=== PATIENT | female | born 1960 | race Caucasian/White ===

== ENCOUNTER 2016-06-04 22:51 | Emergency (ER) | payer OTHER ==
[2016-06-04 23:00] VITALS: O2SAT 98
[2016-06-04] MEDS ORDERED: 0.9% Sodium Chloride 1,000 ML IV ONE (23:08)
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
[2016-06-04 23:16] LABS: BASOPHILS % (AUTO) 0.6 % (0-3); EOSINOPHILS % (AUTO) 1.5 % (0-5); MONOCYTES % (AUTO) 7.3 % (4-12); Mean Corpuscular Hemoglobin 28.7 pg (27.0-35.0); Mean Corpuscular Volume 82.5 fL (81-100); NEUTROPHILS % (AUTO) 36.8 % (40-74); Platelet Count 221 bil/L (150-400)
[2016-06-04] MEDS ORDERED: fentaNYL-PF 50 mCg/mL 2 mL Inj ONE (23:18)
[2016-06-04] MEDS ORDERED: Propofol 10,000 mCg/mL 100 mL Inj ONE (23:18)
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
== END 2016-06-04 23:50 | disposition short-term general hospital (02) ==
LOC: EDBD 22:51 → SED 22:51
DX: S01.91XA Laceration without foreign body of unspecified part of head, initial encounter (principal); S01.412A Laceration without foreign body of left cheek and temporomandibular area, initial encounter; S68.412A Complete traumatic amputation of left hand at wrist level, initial encounter; X99.1XXA Assault by knife, initial encounter; Y93.9 Activity, unspecified; Y92.9 Unspecified place or not applicable; Y99.8 Other external cause status
CPT/HCPCS: 36415; 36430; 71010; 80053; 84703; 85025; 85610; 85730; 86850; 86922; 94002; 94799; 96374; 96375; 99291; G0390; P9021